=== PATIENT | female | born 2000 | race Caucasian/White ===

== ENCOUNTER 2025-05-30 21:00 | Emergency (ER) | payer MEDICAID, SELFPAY ==
[2025-05-30 21:05] VITALS: BP 136/100; PULSE 113; RESP 16; TEMP 37; O2SAT 99
[2025-05-30 21:12] VITALS: BP 130/109; O2SAT 98
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
[2025-05-30 22:10] VITALS: BP 132/107; PULSE 98; RESP 16; O2SAT 100
== END 2025-05-30 22:11 | disposition home or self-care (01) ==
PROVIDERS: Emergency Provider Nurse Practitioner
DX: Z04.1 Encounter for examination and observation following transport accident (principal)
CPT/HCPCS: 71045; 99283